=== PATIENT | male | born 1960 | race Caucasian/White ===

== ENCOUNTER → 2019-03-10 | Outpatient (CLI) | payer OTHER ==
--- NOTE | 2019-03-10 16:33 | PCVCIMAG ---
EXAM: BILATERAL CAROTID DUPLEX INDICATION: Carotid Occlusive Disease. FINDINGS: Doppler Measurements (centimeters per second): RIGHT: Peak CCA-75, Peak ECA-92, Diastolic ICA-38, Peak ICA-81, ICA/CCA Ratio-1.1. LEFT: Peak CCA-91, Peak ECA-88, Diastolic ICA-41, Peak ICA-84, ICA/CCA Ratio-0.9. RIGHT CAROTID: The carotid bulb has moderate plaque. The proximal internal carotid artery shows <40% stenosis. The common carotid artery shows no significant stenosis. The external carotid artery shows no significant stenosis. LEFT CAROTID: The carotid bulb has mild plaque. The proximal internal carotid artery shows <40% stenosis. The common carotid artery shows no significant stenosis. The external carotid artery shows no significant stenosis. Antegrade flow in both vertebral arteries. IMPRESSION: <40% stenosis of the right internal carotid artery with moderate plaque. <40% stenosis of the left internal carotid artery with mild plaque. LOC:[place] [id number]
--- NOTE | 2019-03-10 17:28 | PCVCIMAG ---
APPROVED REPORT Study performed: 03/10/2019 15:50:23 EXAM: Comprehensive 2D, Doppler, and color-flow Echocardiogram Patient Location: Echo lab BSA: 1.92 HR: 82 bpmBP: 140/80 mmHg Rhythm: LBBB Other Information Study Quality: Adequate Indications Dyspnea CAD Cardiomyopathy Fatigue Chest Pain LBBB 2D Dimensions IVSd: 11.31 (7-11mm) LVDd: 56.89 mm PWd: 8.62 (7-11mm)Ascending Ao: 35.79 (22-36mm) LVDs: 48.73 (25-40mm) Left Atrium: 37.45 (27-40mm) Aortic Root: 32.99 mm LV Single Plane 4CH: 30.61 % LV Single Plane 2CH: 30.00 % Biplane EF: 33.3 % Volumes Left Atrial Volume (Systole) Single Plane 4CH: 82.45 mLSingle Plane 2CH: 74.83 mL LA ESV Index: 41.00 mL/m2 Aortic Valve AoV Peak Roney.: 1.32 m/s AO Peak Gr.: 6.92 mmHgLVOT Max P.06 mmHg LVOT Max V: 0.87 m/s Mitral Valve E/A Ratio: 0.8 MV Decel. Time: 304.88 ms MV E Max Roney.: 0.57 m/s MV A Roney.: 0.73 m/s IVRT: 152.25 ms Pulmonary Valve PV Peak Roney.: 1.11 m/sPV Peak Gr.: 4.94 mmHg Pulmonary Vein P Vein S: 0.23 m/sP Vein A: 0.32 m/s P Vein D: 0.53 m/sP Vein A Dur.: 103.8 msec P Vein S/D Ratio: 0.43 Tricuspid Valve TR Peak Roney.: 2.48 m/s TR Peak Gr.: 24.52 mmHg Left Ventricle The left ventricle is normal size. Calcified false tendons in LV apex. Basal septal and basal-mid inferior hypokinesis. There is normal left ventricular wall thickness. Left ventricular systolic function is moderate to severely decreased globally.worse inf wall LVEF is 30-35%. Grade I - abnormal relaxation pattern. Right Ventricle The right ventricle is normal size. The right ventricular systolic function is normal. Atria Left atrium is mildly dilated. The right atrium size is normal. Aortic Valve The aortic valve is normal in structure. Mild aortic regurgitation. There is no aortic valvular stenosis. Mitral Valve The mitral valve is normal in structure. Mild to moderate mitral regurgitation. No evidence of mitral valve stenosis. Tricuspid Valve The tricuspid valve is normal in structure. Mild tricuspid regurgitation with PAP of 32 mmHg. Pulmonic Valve The pulmonary valve is normal in structure. Trace pulmonic regurgitation. Great Vessels The aortic root is normal in size. IVC is normal in size and collapses >50% with inspiration. Pericardium There is no pericardial effusion. There is no pleural effusion. <Conclusion> The left ventricle is normal size. Calcified false tendons in LV apex. Left ventricular systolic function is moderate to severely decreased globally.worse inf wall LVEF is 30-35%. Grade I - abnormal relaxation pattern. Left atrium is mildly dilated. Mild aortic regurgitation. Mild to moderate mitral regurgitation. Mild tricuspid regurgitation with PAP of 32 mmHg. The aortic root is normal in size. There is no pericardial effusion.
== END | disposition home or self-care (01) ==
LOC: PCVCIMAG 14:42
PROVIDERS: ATTEND Internal Medicine Cardiovascular Disease
DX: I08.3 Combined rheumatic disorders of mitral, aortic and tricuspid valves (principal); I65.23 Occlusion and stenosis of bilateral carotid arteries; I10 Essential (primary) hypertension; E78.00 Pure hypercholesterolemia, unspecified; Z88.1 Allergy status to other antibiotic agents
CPT/HCPCS: 93306; 93880